=== PATIENT | female | born 1990 | race African-American/Black ===

== ENCOUNTER 2021-01-07 12:27 | Emergency (ER) | payer BC, MEDICAID ==
[~2021-01-07] VITALS: Ht 162.6 cm; Wt 105.7 kg
[2021-01-07 13:10] VITALS: BP 146/80
== END 2021-01-07 13:47 | disposition home or self-care (01) ==
LOC: ER 12:27
DX: S00.83XA Contusion of other part of head, initial encounter (principal); W20.8XXA Other cause of strike by thrown, projected or falling object, initial encounter; Y93.89 Activity, other specified; Y92.89 Other specified places as the place of occurrence of the external cause; Y99.8 Other external cause status
CPT/HCPCS: 70450

== ENCOUNTER 2023-10-23 09:33 | Inpatient (IN) | payer BC, MEDICAID ==
[~2023-10-23] VITALS: Ht 162.6 cm; Wt 113.8 kg
[2023-10-23 09:55] VITALS: BP 127/84; RESP 14; O2SAT 97
[2023-10-23 10:06] LABS: Urine Bacteria None Seen /hpf (None Seen)
[2023-10-23 10:23] LABS: Urine Blood Negative /uL (Negative); Urine Clarity Clear (Clear); Urine Color Light-Yellow (Yellow); Urine Protein, UAD Negative (Negative); Urine Specific Gravity 1.022 (1.001-1.035); Urine Urobilinogen Normal (Negative); Urine WBC 1 /hpf (0 - 5)
[2023-10-23] MEDS ORDERED: MECLIZINE HCL 25 MG TAB PO ONE (14:30)
[2023-10-23] MEDS ORDERED: SODIUM CHLORIDE 0.9% 1,000 ML IV ONE (14:30)
[2023-10-23] MEDS ORDERED: MECL1TAB42 PO (14:38)
[2023-10-23 14:49] LABS: Basophils # (auto) 0.1 10 ^3/uL (0-0.2); Eosinophils # (auto) 0.3 10 ^3/uL (0-0.8); Hemoglobin 12.2 g/dL (12.2-16.2); Lymphocytes # (auto) 2.4 10 ^3/uL (0.4-5.4); Nucleated Red Blood Cells % 0.1 %
[2023-10-23 14:50] LABS: Basophils % (auto) 0.7 % (0.0-2.0); Eosinophils % (auto) 2.8 % (0.0-7.0); Hematocrit 38.3 % (36.0-46.0); Lymphocytes % (auto) 26.5 % (10.0-50.0); Mean Corpuscular Hemoglobin 26.3 pg (28.0-32.0); Mean Corpuscular Volume 82.2 fL (80.0-100.0); Monocytes # (auto) 0.3 10 ^3/uL (0-1.3); Monocytes % (auto) 2.9 % (0.0-12.0); Neutrophils # (auto) 6.1 10 ^3/uL (1.6-8.6); Neutrophils % (auto) 67.1 % (37.0-80.0); Red Blood Cells 4.66 10^6/uL (4.0-5.20); Red Cell Distribution Width 15.7 % (11.8-14.3); White Blood Cell 9.1 10^3/uL (4.4-10.8)
[2023-10-23 14:59] LABS: Chloride 106 mmol/L (98-107); Potassium 3.8 mmol/L (3.5-5.1); Sodium 138 mmol/L (136-145)
[2023-10-23 15:00] LABS: Anion Gap 3 (5-15); Carbon Dioxide 29 mmol/L (20-30)
[2023-10-23 15:01] LABS: Calcium 9.2 mg/dL (8.7-10.4)
[2023-10-23 15:05] LABS: BUN/Creatinine Ratio 10.5 (10.0-20.0); Blood Urea Nitrogen 8 mg/dL (9-23); Glucose 114 mg/dL (74-106)
[2023-10-23] MEDS ORDERED: HYDROcodone-ACET 5/325MG TAB PO PRN (17:45)
[2023-10-23] MEDS ORDERED: ONDANSETRON HCL 4 MG/2 ML VIAL IV PRN (17:45)
[2023-10-23] MEDS ORDERED: NITROGLYCERIN 0.4 MG SL TAB SL PRN (17:45)
[2023-10-23] MEDS ORDERED: MORPHINE SULFATE INJ 2 MG/ml SYRG IV PRN (17:45)
[2023-10-23 19:11] VITALS: PULSE 100
[2023-10-23] MEDS ORDERED: MECLIZINE HCL 25 MG TAB PO SCH (22:00)
[2023-10-24] MEDS ORDERED: FAMOTIDINE 20 MG TAB PO SCH (10:00)
[2023-10-24] MEDS ORDERED: ASPirin-EC 81 mg tab PO SCH (10:00)
== END 2023-10-23 19:50 | disposition left against medical advice (07) | DRG 47 ==
LOC: ER 09:33 → TELE 17:43
PROVIDERS: ADMIT Hospitalist; ATTEND Hospitalist
DX: G45.9 Transient cerebral ischemic attack, unspecified (principal); F41.9 Anxiety disorder, unspecified; Z53.29 Procedure and treatment not carried out because of patient's decision for other reasons
CPT/HCPCS: 36415; 70450; 71045; 80048; 81001; 82962; 85025; 93005; G0378